=== PATIENT | female | born 1970 | race African-American/Black ===

== ENCOUNTER 2024-05-24 21:46 | Emergency (ER) | payer OTHER ==
--- OUTSIDE RECORDS SUMMARY | 2024-05-24 21:50 | XMS REPORT | Continuity of Care Document ---
Author Name Unknown Address [address] [facility] Luis Enrique. [address] [place] [address] [facility] thconnect Address [address] [facility] Luis Enrique. [address] [place] [address] Care Team Providers Care Iron Piler Name Role Phone Abdulkadir Barker Primary Care Physician Medications Ordered Medication Name Filled Medication Name Start Date Stop Date Current Medication? Ordering Clinician Indication Dosage Frequency Signature (SIG) Comments Components Source diclofenac 1 % topical gel 2023-05 00:00: 00 Yes 4% Gigi Campos naproxen 250 mg tablet 2023-05 00:00: 00 Yes 1mg Gigi Campos atorvastati n 20 mg tablet 2023-05 00:00: 00 Yes mg Gigi Campos losartan 100 mg tablet 2023-05 00:00: 00 Yes mg Gigi Campos Procardia XL 30 mg tablet,exte nded release 2023-05 00:00: 00 Yes 1mg Gigi Campos metformin ER 1,000 mg 24 hr tablet,exte nded release (gastric reten.) 2023-05 00:00: 00 Yes 1mg Gigi Campos metformin ER 1,000 mg 24 hr tablet,exte nded release (gastric reten.) 01-10 00:00: 00 Yes 1mg Gigi Campos atorvastati n 20 mg tablet 01-09 00:00: 00 Yes mg Gigi Dick Andres losartan 100 mg tablet 01-09 00:00: 00 Yes mg Gigi Campos Procardia XL 30 mg tablet,exte nded release 01-09 00:00: 00 Yes 1mg Gigi Campos atorvastati n 20 mg tablet 09-12 00:00: 00 Yes mg Gigi Campos losartan 100 mg tablet 09-12 00:00: 00 Yes mg Gigi Campos metformin ER 500 mg tablet,exte nded release 24 hr 09-12 00:00: 00 Yes mg Gigi Campos Procardia XL 30 mg tablet,exte nded release 09-12 00:00: 00 Yes 1mg Gigi Campos losartan 100 mg tablet - 00:00: 00 Yes mg Gigi Campos atorvastati n 20 mg tablet 06-17 00:00: 00 Yes mg Gigi Campos metformin ER 500 mg tablet,exte nded release 24 hr 06-17 00:00: 00 Yes mg Gigi Campos METFORMIN ER 500MG GP 2022-05 2- 00:00: 00 Yes Gigi Campos TAKE 1 TABLET BY MOUTH TWICE A DAY 2022-05 2- 00:00: 00 09-17 00:00 :00 No 500 Gigi Campos LOSARTAN 50MG 2022-05 2-09 00:00: 00 Yes [id number] Gigi Campos TAKE 1 TABLET DAILY. 2022-05 0- 00:00: 00 09-17 00:00 :00 No 50 Gigi Campos TAKE 1 TABLET BY MOUTH TWICE A DAY 02-09 00:00: 00 09-17 00:00 :00 No 500 Gigi Campos TAKE 1 TABLET DAILY. 02-09 00:00: 00 09-17 00:00 :00 No 25 Gigi Campos INHALE 1 TO 2 PUFFS BY MOUTH EVERY 6 HOURS NEEDED FOR WHEEZE OR FOR BREATHING DIFFICULTY - 00:00: 00 Yes Gigi Campos TAKE 1 TABLET BY MOUTH EVERY 12 HOURS FOR 7 DAYS - 00:00: 00 Yes Gigi Campos TAKE 1 TABLET BY MOUTH EVERY DAY FOR 5 DAYS - 00:00: 00 Yes Gigi Campos ibuprofen 800 mg tablet 6 00:00: 00 Yes 1mg Gigi Campos loratadine 10 mg tablet 2018-05 00:00: 00 Yes 1mg Gigi Campos prednisone 20 mg tablet 08-21 00:00: 00 Yes 1mg Gigi Campos azithromyci n 250 mg tablet 08-21 00:00: 00 Yes mg Gigi Campos benzonatate 100 mg capsule 08-21 00:00: 00 Yes 12mg Gigi Campos amlodipine 2.5 mg tablet 2017-05 00:00: 00 Yes 1mg Gigi Campos amlodipine 2.5 mg tablet 02-04 00:00: 00 Yes 1mg Gigi Campos Norvasc 2.5 mg tablet 10-25 00:00: 00 Yes 1mg Gigi Campos Norvasc 2.5 mg tablet 07-18 00:00: 00 Yes 1mg Gigi Campos amoxicillin 500 mg tablet 07-18 00:00: 00 Yes 1mg Gigi Campos Immunizations Ordered Immunization Name Filled Immunization Name Date Status Comments Source Tdap Tdap 2018-02-04 00:00:00 Completed Gigi Campos Tdap Tdap 2018-02-04 00:00:00 Completed Gigi Campos Vital Signs Vital Name Observation Time Observation Value Comments S ted BP Systolic 2024-05-03 14:03:00 128 mm[Hg] Jameson Campos BP Diastolic 2024-05-03 14:03:00 85 mm[Hg] Luis Enrique phen Dick Campos Weight Measured 2024-05-03 14:03:00 271.20 pounds Gigi Campos Height Measured 2024-05-03 14:03:00 69.00 inches Gigi Campos Body Temperature 2024-05-03 14:03:00 98.20 degrees Gigi Campos Heart Rate 2024-05-03 14:03:00 73.00 /min Lelo Campos Respiratory Rate 2024-05-03 14:03:00 17.00 /min Gigi Campos BP Systolic 2024-04-08 09:49:00 122 mm[Hg] Jameson Campos BP Diastolic 2024-04-08 09:49:00 80 mm[Hg] Luis Enrique phen Dick Campos Weight Measured 2024-04-08 09:49:00 274.40 pounds Gigi F Andres Height Measured 2024-04-08 09:49:00 69.00 inches Gigi F Andres Body Temperature 2024-04-08 09:49:00 97.30 degrees Gigi F Andres Heart Rate 2024-04-08 09:49:00 64.00 /min Lelo en F Andres Respiratory Rate 2024-04-08 09:49:00 18.00 /min Gigi F Andres BP Systolic 2024-01-10 10:58:00 125 mm[Hg] Step hen F Andres BP Diastolic 2024-01-10 10:58:00 81 mm[Hg] Luis Enrique phen F Andres Weight Measured 2024-01-10 10:58:00 269.30 pounds Gigi F Andres Height Measured 2024-01-10 10:58:00 69.00 inches Gigi F Andres Body Temperature 2024-01-10 10:58:00 97.90 degrees Gigi F Andres Heart Rate 2024-01-10 10:58:00 59.00 /min Lelo en F Andres Respiratory Rate 2024-01-10 10:58:00 18.00 /min Gigi F Andres BP Systolic 2023-10-23 11:03:00 148 mm[Hg] Step hen F Andres BP Diastolic 2023-10-23 11:03:00 86 mm[Hg] Luis Enrique phen F Andres Weight Measured 2023-10-23 11:03:00 278.40 pounds Gigi F Andres Height Measured 2023-10-23 11:03:00 69.00 inches Gigi F Andres Body Temperature 2023-10-23 11:03:00 98.00 degrees Gigi F Andres Heart Rate 2023-10-23 11:03:00 60.00 /min Lelo en F Andres Respiratory Rate 2023-10-23 11:03:00 Gigi F Andres BP Systolic 2023-10-23 10:46:00 148 mm[Hg] Step hen F Andres BP Diastolic 2023-10-23 10:46:00 86 mm[Hg] Luis Enrique phen F Andres Weight Measured 2023-10-23 10:46:00 278.40 pounds Gigi F Andres Height Measured 2023-10-23 10:46:00 69.00 inches Gigi F Andres Body Temperature 2023-10-23 10:46:00 98.00 degrees Gigi F Andres Heart Rate 2023-10-23 10:46:00 60.00 /min Lelo en F Andres Respiratory Rate 2023-10-23 10:46:00 Gigi F Andres Weight Measured 2023-09-13 09:10:00 280.40 pounds Gigi F Andres Height Measured 2023-09-13 09:10:00 69.00 inches Gigi F Andres Body Temperature 2023-09-13 09:10:00 98.20 degrees Gigi F Andres Heart Rate 2023-09-13 09:10:00 59.00 /min Lelo en F Andres Respiratory Rate 2023-09-13 09:10:00 16.00 /min Gigi F Andres BP Systolic 2023-09-13 09:10:00 148 mm[Hg] Step hen F Andres BP Diastolic 2023-09-13 09:10:00 82 mm[Hg] Luis Enrique phen F Andres BP Systolic 2023-09-13 08:54:00 148 mm[Hg] Step hen F Andres BP Diastolic 2023-09-13 08:54:00 82 mm[Hg] Luis Enrique phen F Andres Weight Measured 2023-09-13 08:54:00 280.40 pounds Gigi F Andres Height Measured 2023-09-13 08:54:00 69.00 inches Gigi F Andres Body Temperature 2023-09-13 08:54:00 98.20 degrees Gigi F Andres Heart Rate 2023-09-13 08:54:00 59.00 /min Lelo en F Andres Respiratory Rate 2023-09-13 08:54:00 16.00 /min Gigi F Andres BP Systolic 2023-06-15 09:43:00 159 mm[Hg] Step hen F Andres BP Diastolic 2023-06-15 09:43:00 104 mm[Hg] Luis Enrique phen F Andres Weight Measured 2023-06-15 09:43:00 283.60 pounds Gigi F Andres Height Measured 2023-06-15 09:43:00 69.00 inches Gigi F Andres Body Temperature 2023-06-15 09:43:00 98.20 degrees Gigi F Andres Heart Rate 2023-06-15 09:43:00 62.00 /min Lelo en F Andres Respiratory Rate 2023-06-15 09:43:00 16.00 /min Gigi F Andres BP Systolic 2023-03-06 14:55:00 Step hen F Andres BP Diastolic 2023-03-06 14:55:00 Luis Enrique phen F Andres Weight Measured 2023-03-06 14:55:00 Gigi F Andres Height Measured 2023-03-06 14:55:00 Gigi F Andres Body Temperature 2023-03-06 14:55:00 Gigi F Andres Heart Rate 2023-03-06 14:55:00 Lelo en F Nadres Respiratory Rate 2023-03-06 14:55:00 Gigi F Andres BP Systolic 2023-03-06 14:29:00 155 mm[Hg] Step hen F Andres BP Diastolic 2023-03-06 14:29:00 93 mm[Hg] Luis Enrique phen F Andres Weight Measured 2023-03-06 14:29:00 289.00 pounds Gigi F Andres Height Measured 2023-03-06 14:29:00 69.00 inches Gigi F Andres Body Temperature 2023-03-06 14:29:00 98.20 degrees Gigi F Andres Heart Rate 2023-03-06 14:29:00 87.00 /min Lelo en F Andres Respiratory Rate 2023-03-06 14:29:00 18.00 /min Gigi F Andres BP Systolic 2023-02-23 12:45:00 147 mm[Hg] Step hen F Andres BP Diastolic 2023-02-23 12:45:00 91 mm[Hg] Luis Enrique phen F Andres Weight Measured 2023-02-23 12:45:00 290.20 pounds Gigi F Andres Height Measured 2023-02-23 12:45:00 69.00 inches Gigi F Andres Body Temperature 2023-02-23 12:45:00 98.20 degrees Gigi F Andres Heart Rate 2023-02-23 12:45:00 67.00 /min Lelo en F Andres Respiratory Rate 2023-02-23 12:45:00 18.00 /min Gigi F Andres BP Systolic 2023-02-09 16:04:00 171 mm[Hg] Step hen F Andres BP Diastolic 2023-02-09 16:04:00 77 mm[Hg] Luis Enrique phen F Andres Weight Measured 2023-02-09 16:04:00 292.40 pounds Gigi F Andres Height Measured 2023-02-09 16:04:00 69.00 inches Gigi F Andres Body Temperature 2023-02-09 16:04:00 98.40 degrees Gigi F Andres Heart Rate 2023-02-09 16:04:00 81.00 /min Lelo en F Andres Respiratory Rate 2023-02-09 16:04:00 18.00 /min Gigi F Andres BP Systolic 2023-02-02 12:26:00 168 mm[Hg] Step hen F Andres BP Diastolic 2023-02-02 12:26:00 111 mm[Hg] Luis Enrique phen F Andres Weight Measured 2023-02-02 12:26:00 296.40 pounds Gigi F Andres Height Measured 2023-02-02 12:26:00 69.00 inches Gigi F Andres Body Temperature 2023-02-02 12:26:00 98.30 degrees Gigi F Andres Heart Rate 2023-02-02 12:26:00 63.00 /min Lelo en F Andres Respiratory Rate 2023-02-02 12:26:00 16.00 /min Gigi F Andres BP Systolic 2023-02-02 12:00:00 168 mm[Hg] Step hen F Andres BP Diastolic 2023-02-02 12:00:00 111 mm[Hg] Luis Enrique phen F Andres Weight Measured 2023-02-02 12:00:00 296.40 pounds Gigi F Andres Height Measured 2023-02-02 12:00:00 69.00 inches Gigi F Andres Body Temperature 2023-02-02 12:00:00 98.30 degrees Gigi F Andres Heart Rate 2023-02-02 12:00:00 63.00 /min Lelo en F Andres Respiratory Rate 2023-02-02 12:00:00 16.00 /min Gigi F Andres BP Systolic 2021-05-11 16:10:00 Step hen F Andres BP Diastolic 2021-05-11 16:10:00 Luis Enrique phen F Andres Weight Measured 2021-05-11 16:10:00 298.00 pounds Gigi F Andres Height Measured 2021-05-11 16:10:00 69.00 inches Gigi F Andres Body Temperature 2021-05-11 16:10:00 Gigi F Andres Heart Rate 2021-05-11 16:10:00 Lelo Campos Respiratory Rate 2021-05-11 16:10:00 Ggii Campos Procedures Procedure Date / Time Performed Performing Clinicia n Source 95825 Ekg W/ At Least 12 Leads W/ I r 2023-10-23 00:00:00 Gigi Campos Encounters Start Date/Time End Date/Time Encounter Type Admission Type Attending [facility] Care Department Encounter ID Source 2024-05-03 13:56:40 2024-05-03 13:56:40 Outpatient SFA SFA [id number] Gigi Campos 2024-05-03 00:00:00 2024-05-03 00:00:00 Outpatient Visit SFA [id number] Gigi Campos 2024-04-08 09:29:54 2024-04-08 09:29:54 Outpatient SFA SFA [id number] Gigi Campos 2024-04-08 00:00:00 2024-04-08 00:00:00 Outpatient Visit SFA [id number] Gigi Campos 2024-01-10 10:56:12 2024-01-10 10:56:12 Outpatient SFA SFA [id number] Gigi Campos 2024-01-10 00:00:00 2024-01-10 00:00:00 Outpatient Visit SFA [id number] Gigi Campos 2023-10-23 10:42:21 2023-10-23 10:42:21 Outpatient SFA SFA [id number] Gigi Campos 2023-10-23 00:00:00 2023-10-23 00:00:00 Outpatient Visit SFA [id number] Gigi Campos 2023-09-13 08:44:05 2023-09-13 08:44:05 Outpatient SFA SFA [id number] Gigi Campos 2023-09-13 00:00:00 2023-09-13 00:00:00 Outpatient Visit SFA [id number] Gigi Campos 2023-06-15 09:31:33 2023-06-15 09:31:33 Outpatient SFA SFA [id number] Gigi Campos 2023-03-06 14:22:42 2023-03-06 14:22:42 Outpatient SFA SFA [id number] Gigi Campos 2023-02-23 10:35:46 2023-02-23 10:35:46 Outpatient SFA SFA [id number] Gigi Campos 2023-02-09 15:55:32 2023-02-09 15:55:32 Outpatient SFA SFA [id number] Gigi Campos 2023-02-02 11:44:37 2023-02-02 11:44:37 Outpatient SFA SFA [id number] Gigi Campos Results Test Description Test Time Test Comments Results Result Co mments Source LIPID [id number] 03:03:49* Test Item Value Reference Range Interpretation Comme nts CHOLESTEROL (test code = 2210) 143 MG/DL <200 TRIGLYCERIDES (test code = 2232) 79 MG/DL <150 HDL CHOLESTEROL (test code = 2220) 53 MG/DL >39 CALC LDL CHOL (test code = 2237) 74 MG/DL <100 NOTE: CALCULATED LDL IS BASED ON ZEUS-KAYE METHOD WHICHINCLUDES ADJUSTABLE TRIGLYCERIDE:VLDL CHOLESTEROL RATIO.THIS FACTOR VARIES BY MEASURED TRIGLYCERIDE AND NON-HDLCHOLESTEROL CONCENTRATIONS WITH INCREASED CALCULATED LDL SEENIN HIGHER TRIGLYCERIDE OR LOWER NON-HDL SPECIMENS. FOR MOREINFORMATION, SEE CLIENT ANNOUNCEMENT AT [email or web address] RISK RATIO LDL/HDL (test code = 2238) 1.40 RATIO <3.22 COMPREHENSIVE METABOLIC [id number] 03:03:49* Test Item Value Reference Range Interpretation Comme nts GLUCOSE (test code = 2217) 163 MG/DL 70-99 H BUN (test code = 2208) 11 MG/DL 6-20 CREATININE (test code = 2214) 0.79 MG/DL 0.60-1.30 eGFR (2020 CKD-EPI) (test co de = 77774) 91 ML/MIN/1.73 >60 CALC BUN/CREAT (test code = 2234) 14 RATIO 6-28 SODIUM (test code = 2230) 137 MEQ/L 133-146 POTASSIUM (test code = 8) 4.2 MEQ/L 3.5-5.4 CHLORIDE (test code = 2214) 98 MEQ/L 95-107 CARBON DIOXIDE (test code = 6) 26 MEQ/L 19-31 CALCIUM (test code = 2208) 10.0 MG/DL 8.5-10.5 PROTEIN, TOTAL (test code = 2228) 7.2 G/DL 6.1-8.3 ALBUMIN (test code = 2200) 4.4 G/DL 3.5-5.2 CALC GLOBULIN (test code = 2239) 2.8 G/DL 1.9-3.7 CALC A/G RATIO (test code = 2233) 1.6 RATIO 1.0-2.6 BILIRUBIN, TOTAL (test code = 2206) 0.9 MG/DL <=1.2 ALKALINE PHOSPHATASE (test code = 2203) 113 U/L 40-130 AST (test code = 2217) 12 U/L 9-40 ALT (test code = 9) 8 U/L 5-40 HEMOGLOBIN [id number] 02:43:16* Test Item Value Reference Range Interpretation Comme nts HEMOGLOBIN A1c (test code = 26122) 7.4 % 4.2-5.6 H [employer] GUIDELINES FOR HGB A1C: PREDIABETES/INCREASED RISK . . . . . . . 5.7-6.4% DIAGNOSIS OF DIABETES . . . . . . . . . >=6.5% WITH CONFIRMATION OR APPROPRIATE SYMPTOMS NOTE: ASSAY MAY BE AFFECTED BY HEMOGLOBINOPATHIES (SICKLE CELL ANEMIA, S-C DISEASE, OTHERS) OR ARTIFICIALLY LOWERED BY DECREASED RED CELL SURVIVAL (HEMOLYTIC ANEMIAS, BLOOD LOSS, ETC.). CONSIDER ALTERNATE TESTING OR LABORATORY CONSULTATION. LIPID [id number] 00:00:00* Test Item Value Reference Range Interpretation Comme nts CHOLESTEROL (test code = 2209) 143 MG/DL TRIGLYCERIDES (test code = 2231) 79 MG/DL HDL CHOLESTEROL (test code = 2220) 53 MG/DL CALC LDL CHOL (test code = 2237) 74 MG/DL RISK RATIO LDL/HDL (test cod e = 2238) 1.40 RATIO Gigi CamposCOMPREHENSIVE METABOLIC [id number] 00:00:00* Test Item Value Reference Range Interpretation Comme nts GLUCOSE (test code = 2217) 163 MG/DL BUN (test code = 2208) 11 MG/DL CREATININE (test code = 2214) 0.79 MG/DL eGFR (2020 CKD-EPI) (test co de = 28108) 91 ML/MIN/1.73 CALC BUN/CREAT (test code = 2235) 14 RATIO SODIUM (test code = 223) 137 MEQ/L POTASSIUM (test code = 2228) 4.2 MEQ/L CHLORIDE (test code = 2215) 98 MEQ/L CARBON DIOXIDE (test code = 2206) 26 MEQ/L CALCIUM (test code = 2209) 10.0 MG/DL PROTEIN, TOTAL (test code = 2229) 7.2 G/DL ALBUMIN (test code = 2201) 4.4 G/DL CALC GLOBULIN (test code = 2240) 2.8 G/DL CALC A/G RATIO (test code = 2234) 1.6 RATIO BILIRUBIN, TOTAL (test code = 2207) 0.9 MG/DL ALKALINE PHOSPHATASE (test code = 2204) 113 U/L AST (test code = 2218) 12 U/L ALT (test code = 2219) 8 U/L Gigi CamposALBUMIN/CREATININE RATIO, RANDOM [id number] 00:00:00* Test Item Value Reference Range Interpretation Comme nts CREATININE, URINE, CONC. (te st code = 2072) 177.0 MG/DL ALBUMIN, URINE, RANDOM (test code = 05291) 1.0 MG/DL CALC ALBUMIN/CREAT, RND (connor t code = 45407) 6 MG/G Gigi CamposHEMOGLOBIN [id number] 00:00:00* Test Item Value Reference Range Interpretation Comme nts HEMOGLOBIN A1c (test code = 06163) 7.4 % Gigi CamposLIPID [id number] 00:00:00* Test Item Value Reference Range Interpretation Comme nts CHOLESTEROL (test code = 2210) 136 MG/DL TRIGLYCERIDES (test code = 2232) 111 MG/DL HDL CHOLESTEROL (test code = 2220) 48 MG/DL CALC LDL CHOL (test code = 2237) 69 MG/DL RISK RATIO LDL/HDL (test cod e = 2238) 1.44 RATIO Gigi CamposCOMPREHENSIVE METABOLIC [id number] 00:00:00* Test Item Value Reference Range Interpretation Comme nts GLUCOSE (test code = 2217) 157 MG/DL BUN (test code = 2208) 9 MG/DL CREATININE (test code = 2214) 0.83 MG/DL eGFR (2020 CKD-EPI) (test co de = 59031) 85 ML/MIN/1.73 CALC BUN/CREAT (test code = 2235) 11 RATIO SODIUM (test code = 2231) 141 MEQ/L POTASSIUM (test code = 2228) 4.5 MEQ/L CHLORIDE (test code = 2215) 102 MEQ/L CARBON DIOXIDE (test code = 2206) 24 MEQ/L CALCIUM (test code = 2209) 10.0 MG/DL PROTEIN, TOTAL (test code = 2229) 7.7 G/DL ALBUMIN (test code = 2201) 4.5 G/DL CALC GLOBULIN (test code = 2240) 3.2 G/DL CALC A/G RATIO (test code = 2234) 1.4 RATIO BILIRUBIN, TOTAL (test code = 2207) 0.8 MG/DL ALKALINE PHOSPHATASE (test code = 2204) 114 U/L AST (test code = 2218) 22 U/L ALT (test code = 2219) 17 U/L Gigi CamposHEMOGLOBIN [id number] 00:00:00* Test Item Value Reference Range Interpretation Comme nts HEMOGLOBIN A1c (test code = 04734) 7.5 % Gigi CamposLIPID [id number] 00:00:00* Test Item Value Reference Range Interpretation Comme nts CHOLESTEROL (test code = 2210) 136 MG/DL TRIGLYCERIDES (test code = 2232) 111 MG/DL HDL CHOLESTEROL (test code = 2220) 48 MG/DL CALC LDL CHOL (test code = 2237) 69 MG/DL RISK RATIO LDL/HDL (test cod e = 2238) 1.44 RATIO Gigi CamposCOMPREHENSIVE METABOLIC [id number] 00:00:00* Test Item Value Reference Range Interpretation Comme nts GLUCOSE (test code = 2217) 157 MG/DL BUN (test code = 2208) 9 MG/DL CREATININE (test code = 2214) 0.83 MG/DL eGFR (2020 CKD-EPI) (test co de = 13543) 85 ML/MIN/1.73 CALC BUN/CREAT (test code = 2235) 11 RATIO SODIUM (test code = 223) 141 MEQ/L POTASSIUM (test code = 2228) 4.5 MEQ/L CHLORIDE (test code = 2215) 102 MEQ/L CARBON DIOXIDE (test code = 2206) 24 MEQ/L CALCIUM (test code = 2209) 10.0 MG/DL PROTEIN, TOTAL (test code = 2228) 7.7 G/DL ALBUMIN (test code = 220) 4.5 G/DL CALC GLOBULIN (test code = 2240) 3.2 G/DL CALC A/G RATIO (test code = 2234) 1.4 RATIO BILIRUBIN, TOTAL (test code = 2206) 0.8 MG/DL ALKALINE PHOSPHATASE (test code = 2203) 114 U/L AST (test code = 2218) 22 U/L ALT (test code = 2219) 17 U/L Gigi CamposHEMOGLOBIN [id number] 00:00:00* Test Item Value Reference Range Interpretation Comme [facility] HEMOGLOBIN A1c (test code = 29704) 7.5 % Gigi CamposLIPID [id number] 04:18:55* Test Item Value Reference Range Interpretation Comme nts CHOLESTEROL (test code = 2210) 142 MG/DL <200 TRIGLYCERIDES (test code = 2232) 89 MG/DL <150 HDL CHOLESTEROL (test code = 2220) 48 MG/DL >39 CALC LDL CHOL (test code = 2237) 77 MG/DL <100 NOTE: CALCULATED LDL IS BASED ON ZEUS-KAYE METHOD WHICHINCLUDES ADJUSTABLE TRIGLYCERIDE:VLDL CHOLESTEROL RATIO.THIS FACTOR VARIES BY MEASURED TRIGLYCERIDE AND NON-HDLCHOLESTEROL CONCENTRATIONS WITH INCREASED CALCULATED LDL SEENIN HIGHER TRIGLYCERIDE OR LOWER NON-HDL SPECIMENS. FOR MOREINFORMATION, SEE CLIENT ANNOUNCEMENT AT [email or web address] RISK RATIO LDL/HDL (test code = 2238) 1.60 RATIO <3.22 COMPREHENSIVE METABOLIC [id number] 04:18:55* Test Item Value Reference Range Interpretation Comme nts GLUCOSE (test code = 2216) 166 MG/DL 70-99 H BUN (test code = 2207) 12 MG/DL 6-20 CREATININE (test code = 2213) 0.82 MG/DL 0.60-1.30 eGFR (2020 CKD-EPI) (test code = 72217) 87 ML/MIN/1.73 >60 CALC BUN/CREAT (test code = 2234) 15 RATIO 6-28 SODIUM (test code = 2230) 140 MEQ/L 133-146 POTASSIUM (test code = 2227) 4.3 MEQ/L 3.5-5.4 CHLORIDE (test code = 2214) 102 MEQ/L 95-107 CARBON DIOXIDE (test code = 2205) 28 MEQ/L 19-31 CALCIUM (test code = 2208) 9.7 MG/DL 8.5-10.5 PROTEIN, TOTAL (test code = 2228) 7.1 G/DL 6.1-8.3 ALBUMIN (test code = 2200) 4.3 G/DL 3.5-5.2 CALC GLOBULIN (test code = 0) 2.8 G/DL 1.9-3.7 CALC A/G RATIO (test code = 2233) 1.5 RATIO 1.0-2.6 BILIRUBIN, TOTAL (test code = 2206) 0.8 MG/DL <=1.2 ALKALINE PHOSPHATASE (test code = 2203) 107 U/L 40-130 AST (test code = 2217) 18 U/L 9-40 ALT (test code = 2218) 16 U/L 5-40 UNLESS OTHERWISE INDICATED, ALL TESTING PERFORMED AT [facility] [address] [place] [address] ENVIRONMENTAL STUDIES DEPARTMENT CHAIR: MEGHANN CURRY M.D. [place] NUMBER [id number] [facility] [place]. [id number] HEMOGLOBIN [id number] 02:28:16* Test Item Value Reference Range Interpretation Comme nts HEMOGLOBIN A1c (test code = 86796) 8.2 % 4.2-5.6 H [employer] GUIDELINES FOR HGB A1C: PREDIABETES/INCREASED RISK . . . . . . . 5.7-6.4% DIAGNOSIS OF DIABETES . . . . . . . . . >=6.5% WITH CONFIRMATION OR APPROPRIATE SYMPTOMS NOTE: ASSAY MAY BE AFFECTED BY HEMOGLOBINOPATHIES (SICKLE CELL ANEMIA, S-C DISEASE, OTHERS) OR ARTIFICIALLY LOWERED BY DECREASED RED CELL SURVIVAL (HEMOLYTIC ANEMIAS, BLOOD LOSS, ETC.). CONSIDER ALTERNATE TESTING OR LABORATORY CONSULTATION. LIPID [id number] 00:00:00* Test Item Value Reference Range Interpretation Comme nts CHOLESTEROL (test code = 2210) 142 MG/DL TRIGLYCERIDES (test code = 2232) 89 MG/DL HDL CHOLESTEROL (test code = 2220) 48 MG/DL CALC LDL CHOL (test code = 2237) 77 MG/DL RISK RATIO LDL/HDL (test cod e = 2238) 1.60 RATIO Gigi CamposCOMPREHENSIVE METABOLIC [id number] 00:00:00* Test Item Value Reference Range Interpretation Comme nts GLUCOSE (test code = 2217) 166 MG/DL BUN (test code = 2208) 12 MG/DL CREATININE (test code = 2214) 0.82 MG/DL eGFR (2020 CKD-EPI) (test co de = 49360) 87 ML/MIN/1.73 CALC BUN/CREAT (test code = 2235) 15 RATIO SODIUM (test code = 2231) 140 MEQ/L POTASSIUM (test code = 2228) 4.3 MEQ/L CHLORIDE (test code = 2215) 102 MEQ/L CARBON DIOXIDE (test code = 2206) 28 MEQ/L CALCIUM (test code = 2209) 9.7 MG/DL PROTEIN, TOTAL (test code = 2229) 7.1 G/DL ALBUMIN (test code = 2201) 4.3 G/DL CALC GLOBULIN (test code = 2240) 2.8 G/DL CALC A/G RATIO (test code = 2234) 1.5 RATIO BILIRUBIN, TOTAL (test code = 2207) 0.8 MG/DL ALKALINE PHOSPHATASE (test code = 2204) 107 U/L AST (test code = 2218) 18 U/L ALT (test code = 2219) 16 U/L Gigi CamposHEMOGLOBIN [id number] 00:00:00* Test Item Value Reference Range Interpretation Comme nts HEMOGLOBIN A1c (test code = 46528) 8.2 % Gigi CamposLIPID [id number] 00:00:00* Test Item Value Reference Range Interpretation Comme nts CHOLESTEROL (test code = 2210) 142 MG/DL TRIGLYCERIDES (test code = 2232) 89 MG/DL HDL CHOLESTEROL (test code = 2220) 48 MG/DL CALC LDL CHOL (test code = 2237) 77 MG/DL RISK RATIO LDL/HDL (test cod e = 2238) 1.60 RATIO Gigi CamposCOMPREHENSIVE METABOLIC [id number] 00:00:00* Test Item Value Reference Range Interpretation Comme nts GLUCOSE (test code = 2217) 166 MG/DL BUN (test code = 2208) 12 MG/DL CREATININE (test code = 2214) 0.82 MG/DL eGFR (2020 CKD-EPI) (test co de = 74636) 87 ML/MIN/1.73 CALC BUN/CREAT (test code = 2235) 15 RATIO SODIUM (test code = 2231) 140 MEQ/L POTASSIUM (test code = 2228) 4.3 MEQ/L CHLORIDE (test code = 2215) 102 MEQ/L CARBON DIOXIDE (test code = 2206) 28 MEQ/L CALCIUM (test code = 2209) 9.7 MG/DL PROTEIN, TOTAL (test code = 2229) 7.1 G/DL ALBUMIN (test code = 2201) 4.3 G/DL CALC GLOBULIN (test code = 2240) 2.8 G/DL CALC A/G RATIO (test code = 2234) 1.5 RATIO BILIRUBIN, TOTAL (test code = 2207) 0.8 MG/DL ALKALINE PHOSPHATASE (test code = 2204) 107 U/L AST (test code = 2218) 18 U/L ALT (test code = 2219) 16 U/L Gigi CamposHEMOGLOBIN [id number] 00:00:00* Test Item Value Reference Range Interpretation Comme nts HEMOGLOBIN A1c (test code = 99389) 8.2 % Gigi CamposLIPID [id number] 00:00:00* Test Item Value Reference Range Interpretation Comme nts CHOLESTEROL (test code = 2210) 142 MG/DL TRIGLYCERIDES (test code = 2232) 89 MG/DL HDL CHOLESTEROL (test code = 2220) 48 MG/DL CALC LDL CHOL (test code = 2237) 77 MG/DL RISK RATIO LDL/HDL (test cod e = 2238) 1.60 RATIO Gigi CamposCOMPREHENSIVE METABOLIC [id number] 00:00:00* Test Item Value Reference Range Interpretation Comme nts GLUCOSE (test code = 2217) 166 MG/DL BUN (test code = 2208) 12 MG/DL CREATININE (test code = 2214) 0.82 MG/DL eGFR (2020 CKD-EPI) (test co de = 95187) 87 ML/MIN/1.73 CALC BUN/CREAT (test code = 2235) 15 RATIO SODIUM (test code = 2231) 140 MEQ/L POTASSIUM (test code = 2228) 4.3 MEQ/L CHLORIDE (test code = 2215) 102 MEQ/L CARBON DIOXIDE (test code = 2206) 28 MEQ/L CALCIUM (test code = 2209) 9.7 MG/DL PROTEIN, TOTAL (test code = 2229) 7.1 G/DL ALBUMIN (test code = 2201) 4.3 G/DL CALC GLOBULIN (test code = 2240) 2.8 G/DL CALC A/G RATIO (test code = 2234) 1.5 RATIO BILIRUBIN, TOTAL (test code = 2207) 0.8 MG/DL ALKALINE PHOSPHATASE (test code = 2204) 107 U/L AST (test code = 2218) 18 U/L ALT (test code = 2219) 16 U/L Gigi CamposHEMOGLOBIN [id number] 00:00:00* Test Item Value Reference Range Interpretation Comme nts HEMOGLOBIN A1c (test code = 67571) 8.2 % Gigi CamposLIPID [id number] 00:00:00* Test Item Value Reference Range Interpretation Comme nts CHOLESTEROL (test code = 2210) 142 MG/DL TRIGLYCERIDES (test code = 2232) 89 MG/DL HDL CHOLESTEROL (test code = 2220) 48 MG/DL CALC LDL CHOL (test code = 2237) 77 MG/DL RISK RATIO LDL/HDL (test cod e = 2238) 1.60 RATIO Gigi CamposCOMPREHENSIVE METABOLIC [id number] 00:00:00* Test Item Value Reference Range Interpretation Comme nts GLUCOSE (test code = 2217) 166 MG/DL BUN (test code = 2208) 12 MG/DL CREATININE (test code = 2214) 0.82 MG/DL eGFR (2020 CKD-EPI) (test co de = 05286) 87 ML/MIN/1.73 CALC BUN/CREAT (test code = 2235) 15 RATIO SODIUM (test code = 2231) 140 MEQ/L POTASSIUM (test code = 2228) 4.3 MEQ/L CHLORIDE (test code = 2215) 102 MEQ/L CARBON DIOXIDE (test code = 2206) 28 MEQ/L CALCIUM (test code = 2209) 9.7 MG/DL PROTEIN, TOTAL (test code = 2229) 7.1 G/DL ALBUMIN (test code = 2201) 4.3 G/DL CALC GLOBULIN (test code = 2240) 2.8 G/DL CALC A/G RATIO (test code = 2234) 1.5 RATIO BILIRUBIN, TOTAL (test code = 2207) 0.8 MG/DL ALKALINE PHOSPHATASE (test code = 220) 107 U/L AST (test code = 2218) 18 U/L ALT (test code = 2219) 16 U/L Gigi CamposHEMOGLOBIN [id number] 00:00:00* Test Item Value Reference Range Interpretation Comme nts HEMOGLOBIN A1c (test code = 86155) 8.2 % Gigi CamposLIPID [id number] 06:21:14* Test Item Value Reference Range Interpretation Comme nts CHOLESTEROL (test code = 2210) 184 MG/DL <200 TRIGLYCERIDES (test code = 2232) 84 MG/DL <150 HDL CHOLESTEROL (test code = 2220) 48 MG/DL >39 CALC LDL CHOL (test code = 2237) 118 MG/DL <100 H NOTE: CALCULATED LDL IS BASED ON ZEUS-KAYE METHOD WHICHINCLUDES ADJUSTABLE TRIGLYCERIDE:VLDL CHOLESTEROL RATIO.THIS FACTOR VARIES BY MEASURED TRIGLYCERIDE AND NON-HDLCHOLESTEROL CONCENTRATIONS WITH INCREASED CALCULATED LDL SEENIN HIGHER TRIGLYCERIDE OR LOWER NON-HDL SPECIMENS. FOR MOREINFORMATION, SEE CLIENT ANNOUNCEMENT AT [email or web address] RISK RATIO LDL/HDL (test code = 2238) 2.46 RATIO <3.22 UNLESS OTHERW ISE INDICATED, ALL TESTING PERFORMED AT [facility] [address] [place] [address] ENVIRONMENTAL STUDIES DEPARTMENT CHAIR: MEGHANN CURRY M.D. CLIA NUMBER [id number] [facility] [place]. [id number] COMPREHENSIVE METABOLIC [id number] 06:21:14* Test Item Value Reference Range Interpretation Comme nts GLUCOSE (test code = 7) 150 MG/DL 70-99 H BUN (test code = 2207) 10 MG/DL 6-20 CREATININE (test code = 2214) 0.75 MG/DL 0.60-1.30 eGFR (2020 CKD-EPI) (test co de = 43654) 97 ML/MIN/1.73 >60 CALC BUN/CREAT (test code = 2235) 13 RATIO 6-28 SODIUM (test code = 223) 139 MEQ/L 133-146 POTASSIUM (test code = 2228) 4.4 MEQ/L 3.5-5.4 CHLORIDE (test code = 2214) 103 MEQ/L 95-107 CARBON DIOXIDE (test code = 6) 25 MEQ/L 19-31 CALCIUM (test code = 2208) 9.5 MG/DL 8.5-10.5 PROTEIN, TOTAL (test code = 2228) 7.0 G/DL 6.1-8.3 ALBUMIN (test code = 2200) 4.2 G/DL 3.5-5.2 CALC GLOBULIN (test code = 2240) 2.8 G/DL 1.9-3.7 CALC A/G RATIO (test code = 223) 1.5 RATIO 1.0-2.6 BILIRUBIN, TOTAL (test code = 2206) 0.7 MG/DL <=1.2 ALKALINE PHOSPHATASE (test code = 4) 100 U/L 40-128 AST (test code = 2218) 21 U/L 9-40 ALT (test code = 2219) 18 U/L 5-40 HEMOGLOBIN [id number] 02:43:38* Test Item Value Reference Range Interpretation Comme nts HEMOGLOBIN A1c (test code = 32494) 7.7 % 4.2-5.6 H [employer] GUIDELINES FOR HGB A1C: PREDIABETES/INCREASED RISK . . . . . . . 5.7-6.4% DIAGNOSIS OF DIABETES . . . . . . . . . >=6.5% WITH CONFIRMATION OR APPROPRIATE SYMPTOMS NOTE: ASSAY MAY BE AFFECTED BY HEMOGLOBINOPATHIES (SICKLE CELL ANEMIA, S-C DISEASE, OTHERS) OR ARTIFICIALLY LOWERED BY DECREASED RED CELL SURVIVAL (HEMOLYTIC ANEMIAS, BLOOD LOSS, ETC.). CONSIDER ALTERNATE TESTING OR LABORATORY CONSULTATION. COMPREHENSIVE METABOLIC [id number] 00:00:00* Test Item Value Reference Range Interpretation Comme nts GLUCOSE (test code = 2217) 150 MG/DL BUN (test code = 2208) 10 MG/DL CREATININE (test code = 2214) 0.75 MG/DL eGFR (2020 CKD-EPI) (test co de = 32387) 97 ML/MIN/1.73 CALC BUN/CREAT (test code = 2235) 13 RATIO SODIUM (test code = 2231) 139 MEQ/L POTASSIUM (test code = 2228) 4.4 MEQ/L CHLORIDE (test code = 2215) 103 MEQ/L CARBON DIOXIDE (test code = 2206) 25 MEQ/L CALCIUM (test code = 2209) 9.5 MG/DL PROTEIN, TOTAL (test code = 2229) 7.0 G/DL ALBUMIN (test code = 2201) 4.2 G/DL CALC GLOBULIN (test code = 2240) 2.8 G/DL CALC A/G RATIO (test code = 2234) 1.5 RATIO BILIRUBIN, TOTAL (test code = 2207) 0.7 MG/DL ALKALINE PHOSPHATASE (test code = 2204) 100 U/L AST (test code = 2218) 21 U/L ALT (test code = 2219) 18 U/L Gigi CamposHEMOGLOBIN [id number] 00:00:00* Test Item Value Reference Range Interpretation Comme nts HEMOGLOBIN A1c (test code = 51965) 7.7 % Gigi CamposLIPID [id number] 00:00:00* Test Item Value Reference Range Interpretation Comme nts CHOLESTEROL (test code = 2210) 184 MG/DL TRIGLYCERIDES (test code = 2232) 84 MG/DL HDL CHOLESTEROL (test code = 2220) 48 MG/DL CALC LDL CHOL (test code = 2237) 118 MG/DL RISK RATIO LDL/HDL (test cod e = 2238) 2.46 RATIO Gigi CamposCOMPREHENSIVE METABOLIC [id number] 00:00:00* Test Item Value Reference Range Interpretation Comme nts GLUCOSE (test code = 2217) 150 MG/DL BUN (test code = 2208) 10 MG/DL CREATININE (test code = 2214) 0.75 MG/DL eGFR (2020 CKD-EPI) (test co de = 20640) 97 ML/MIN/1.73 CALC BUN/CREAT (test code = 2235) 13 RATIO SODIUM (test code = 2231) 139 MEQ/L POTASSIUM (test code = 2228) 4.4 MEQ/L CHLORIDE (test code = 2215) 103 MEQ/L CARBON DIOXIDE (test code = 2206) 25 MEQ/L CALCIUM (test code = 2209) 9.5 MG/DL PROTEIN, TOTAL (test code = 2229) 7.0 G/DL ALBUMIN (test code = 2201) 4.2 G/DL CALC GLOBULIN (test code = 2240) 2.8 G/DL CALC A/G RATIO (test code = 2234) 1.5 RATIO BILIRUBIN, TOTAL (test code = 2207) 0.7 MG/DL ALKALINE PHOSPHATASE (test code = 2204) 100 U/L AST (test code = 2218) 21 U/L ALT (test code = 2219) 18 U/L Gigi CamposHEMOGLOBIN [id number] 00:00:00* Test Item Value Reference Range Interpretation Comme [facility] HEMOGLOBIN A1c (test code = 86773) 7.7 % Gigi CamposLIPID [id number] 00:00:00* Test Item Value Reference Range Interpretation Comme nts CHOLESTEROL (test code = 2210) 184 MG/DL TRIGLYCERIDES (test code = 2232) 84 MG/DL HDL CHOLESTEROL (test code = 2220) 48 MG/DL CALC LDL CHOL (test code = 2237) 118 MG/DL RISK RATIO LDL/HDL (test cod e = 2238) 2.46 RATIO Gigi CamposCOMPREHENSIVE METABOLIC [id number] 00:00:00* Test Item Value Reference Range Interpretation Comme nts GLUCOSE (test code = 2217) 150 MG/DL BUN (test code = 2208) 10 MG/DL CREATININE (test code = 2214) 0.75 MG/DL eGFR (2020 CKD-EPI) (test co de = 15428) 97 ML/MIN/1.73 CALC BUN/CREAT (test code = 2235) 13 RATIO SODIUM (test code = 2231) 139 MEQ/L POTASSIUM (test code = 2228) 4.4 MEQ/L CHLORIDE (test code = 2215) 103 MEQ/L CARBON DIOXIDE (test code = 2206) 25 MEQ/L CALCIUM (test code = 2209) 9.5 MG/DL PROTEIN, TOTAL (test code = 2229) 7.0 G/DL ALBUMIN (test code = 2201) 4.2 G/DL CALC GLOBULIN (test code = 2240) 2.8 G/DL CALC A/G RATIO (test code = 2234) 1.5 RATIO BILIRUBIN, TOTAL (test code = 2207) 0.7 MG/DL ALKALINE PHOSPHATASE (test code = 2204) 100 U/L AST (test code = 2218) 21 U/L ALT (test code = 2219) 18 U/L Gigi CamposHEMOGLOBIN [id number] 00:00:00* Test Item Value Reference Range Interpretation Comme nts HEMOGLOBIN A1c (test code = 36863) 7.7 % Gigi CamposLIPID [id number] 00:00:00* Test Item Value Reference Range Interpretation Comme nts CHOLESTEROL (test code = 2210) 184 MG/DL TRIGLYCERIDES (test code = 2232) 84 MG/DL HDL CHOLESTEROL (test code = 2220) 48 MG/DL CALC LDL CHOL (test code = 2237) 118 MG/DL RISK RATIO LDL/HDL (test cod e = 2238) 2.46 RATIO Gigi CamposCOMPREHENSIVE METABOLIC [id number] 00:00:00* Test Item Value Reference Range Interpretation Comme nts GLUCOSE (test code = 2217) 150 MG/DL BUN (test code = 2208) 10 MG/DL CREATININE (test code = 2214) 0.75 MG/DL eGFR (2020 CKD-EPI) (test co de = 04876) 97 ML/MIN/1.73 CALC BUN/CREAT (test code = 2235) 13 RATIO SODIUM (test code = 2231) 139 MEQ/L POTASSIUM (test code = 2228) 4.4 MEQ/L CHLORIDE (test code = 2215) 103 MEQ/L CARBON DIOXIDE (test code = 2206) 25 MEQ/L CALCIUM (test code = 2209) 9.5 MG/DL PROTEIN, TOTAL (test code = 2229) 7.0 G/DL ALBUMIN (test code = 2201) 4.2 G/DL CALC GLOBULIN (test code = 2240) 2.8 G/DL CALC A/G RATIO (test code = 2234) 1.5 RATIO BILIRUBIN, TOTAL (test code = 2207) 0.7 MG/DL ALKALINE PHOSPHATASE (test code = 2204) 100 U/L AST (test code = 2218) 21 U/L ALT (test code = 2219) 18 U/L Gigi CamposHEMOGLOBIN [id number] 00:00:00* Test Item Value Reference Range Interpretation Comme nts HEMOGLOBIN A1c (test code = 97178) 7.7 % Gigi Jennings AustinLIPID [id number] 00:00:00* Test Item Value Reference Range Interpretation Comme nts CHOLESTEROL (test code = 2210) 184 MG/DL TRIGLYCERIDES (test code = 2232) 84 MG/DL HDL CHOLESTEROL (test code = 2220) 48 MG/DL CALC LDL CHOL (test code = 2237) 118 MG/DL RISK RATIO LDL/HDL (test cod e = 2238) 2.46 RATIO Gigi CamposCOMPREHENSIVE METABOLIC [id number] 00:00:00* Test Item Value Reference Range Interpretation Comme nts GLUCOSE (test code = 2217) 150 MG/DL BUN (test code = 2208) 10 MG/DL CREATININE (test code = 2214) 0.75 MG/DL eGFR (2020 CKD-EPI) (test co de = 65014) 97 ML/MIN/1.73 CALC BUN/CREAT (test code = 2235) 13 RATIO SODIUM (test code = 2231) 139 MEQ/L POTASSIUM (test code = 2228) 4.4 MEQ/L CHLORIDE (test code = 2215) 103 MEQ/L CARBON DIOXIDE (test code = 2206) 25 MEQ/L CALCIUM (test code = 2209) 9.5 MG/DL PROTEIN, TOTAL (test code = 2229) 7.0 G/DL ALBUMIN (test code = 2201) 4.2 G/DL CALC GLOBULIN (test code = 2240) 2.8 G/DL CALC A/G RATIO (test code = 2234) 1.5 RATIO BILIRUBIN, TOTAL (test code = 2207) 0.7 MG/DL ALKALINE PHOSPHATASE (test code = 2204) 100 U/L AST (test code = 2218) 21 U/L ALT (test code = 2219) 18 U/L Gigi Jennings AustinHEMOGLOBIN [id number] 00:00:00* Test Item Value Reference Range Interpretation Comme nts HEMOGLOBIN A1c (test code = 51048) 7.7 % Gigi CamposLIPID [id number] 00:00:00* Test Item Value Reference Range Interpretation Comme nts CHOLESTEROL (test code = 2210) 184 MG/DL TRIGLYCERIDES (test code = 2232) 84 MG/DL HDL CHOLESTEROL (test code = 2220) 48 MG/DL CALC LDL CHOL (test code = 2237) 118 MG/DL RISK RATIO LDL/HDL (test cod e = 2238) 2.46 RATIO Gigi CamposPAP TEST, THINPREP, [id number] 18:02:26* Test Item Value Reference Range Interpretation Comme nts SOURCE: (test code = 8001) Cervical/Endoc ervical SLIDES: (test code = 8011) 1 LMP: (test code = 8021) 12/2022 SPECIMEN ADEQUACY: (test code = 69222) (NOTE) Satisfactory for evaluation. Endocervical cells/transformation zone component present. INTERPRETATION: (test code = 64331) NILM/NO EPITH. ABNORMALITY;SE E BELOW ---- NEGATIVE FOR INTRAEPITHELIAL LESION OR MALIGNANCY (NILM) - OTHER COMMENTS: (test code = 8081) (NOTE) Shift in garrett suggestive of bacterial vaginosis. ROLLER DIE CUTTING MACHINE OPERATOR : (test code = 8101) NAKIA Vick( ASCP)[facility] LOCATION: (test code = 57218) (NOTE) Specimens proces sed and interpreted at [facility], [address] [place] [address], , CLIA: [id number] CPT: (test code = 8140) (NOTE) 81339 UNLESS OTH ERWISE INDICATED, COMPUTER AIDED AND ROLLER DIE CUTTING MACHINE OPERATOR SCREENING PERFORMED. The Pap test is a screening test with an inherent, but low probability of error. Your patient should be reminded to consult you immediately if she experiences any suspicious signs or symptoms, regardless of her Pap test result. An alternate report format containing images or consolidated prior Pap history is available as applicable. HPV HIGH RISK WITH GENOTYPE, [id number] 17:53:13* Test Item Value Reference Range Interpretation Comme nts HPV HIGH RISK INTERP (test code = 43552) NEGATIVE NEGATIVE HPV 16 (test code = 90220) NEGATIVE HPV 18 (test code = 53158) NEGATIVE HPV, HR, OTHER GENOTYPES (test code = 38572) NEGATIVE Testing methodol ogy is real-time PCR utilizing hydrolysis probes with the Vaximmas 4800 system. The test individually detects genotypes 16 and 18, as well as the other 12 high risk types (31,33,35,39,45,51,52,56 ,58,59,66,68). The expected result is negative. A negative result does not rule out the presence of HPV not included in the genotype set, a low level of infection or specimen sampling error. UNLESS OTHERWISE INDICATED, ALL TESTING PERFORMED AT [facility] [address] [place] [address] ENVIRONMENTAL STUDIES DEPARTMENT CHAIR: MEGHANN CURRY M.D. IA NUMBER [id number] [facility] [place]. [id number] HPV HIGH RISK WITH GENOTYPE, [id number] 00:00:00* Test Item Value Reference Range Interpretation Comme nts HPV HIGH RISK INTERP (test c ode = 62587) NEGATIVE HPV 16 (test code = 41679) NEGATIVE HPV 18 (test code = 78989) NEGATIVE HPV, HR, OTHER GENOTYPES (te st code = 43177) NEGATIVE PDFE (test code = PDFReport) PDF Gigi Jennings AustinPAP TEST, THINPREP, [id number] 00:00:00* Test Item Value Reference Range Interpretation Comme nts SOURCE: (test code = 8001) Cervical/Endocervical SLIDES: (test code = 8011) 1 LMP: (test code = 8021) 12/2022 SPECIMEN ADEQUACY: (test code = 53138) (NOTE) INTERPRETATION: (test code = 57127) NILM/NO EPITH. ABNORMALITY;SEE BELOW OTHER COMMENTS: (test code = 8081) (NOTE) ROLLER DIE CUTTING MACHINE OPERATOR: (test code = 8101) NAKIA Vick(ASCP)IA C LOCATION: (test code = 67727) (NOTE) CPT: (test code = 8140) (NOTE) Gigi Jennings AustinHPV HIGH RISK WITH GENOTYPE, [id number] 00:00:00* Test Item Value Reference Range Interpretation Comme nts HPV HIGH RISK INTERP (test c ode = 44705) NEGATIVE HPV 16 (test code = 58762) NEGATIVE HPV 18 (test code = 17808) NEGATIVE HPV, HR, OTHER GENOTYPES (te st code = 86253) NEGATIVE PDFE (test code = PDFReport) PDF Gigi CamposPAP TEST, THINPREP, [id number] 00:00:00* Test Item Value Reference Range Interpretation Comme nts SOURCE: (test code = 8001) Cervical/Endocervical SLIDES: (test code = 8011) 1 LMP: (test code = 8021) 12/2022 SPECIMEN ADEQUACY: (test code = 10206) (NOTE) INTERPRETATION: (test code = 71042) NILM/NO EPITH. ABNORMALITY;SEE BELOW OTHER COMMENTS: (test code = 8081) (NOTE) ROLLER DIE CUTTING MACHINE OPERATOR: (test code = 8101) NAKIA Vick(ASCP)IA C LOCATION: (test code = 47262) (NOTE) CPT: (test code = 8140) (NOTE) Gigi CamposHPV HIGH RISK WITH GENOTYPE, [id number] 00:00:00* Test Item Value Reference Range Interpretation Comme nts HPV HIGH RISK INTERP (test c ode = 35442) NEGATIVE HPV 16 (test code = 31745) NEGATIVE HPV 18 (test code = 57009) NEGATIVE HPV, HR, OTHER GENOTYPES (te st code = 32969) NEGATIVE PDFE (test code = PDFReport) PDF Gigi CamposPAP TEST, THINPREP, [id number] 00:00:00* Test Item Value Reference Range Interpretation Comme nts SOURCE: (test code = 8001) Cervical/Endocervical SLIDES: (test code = 8011) 1 LMP: (test code = 8021) 12/2022 SPECIMEN ADEQUACY: (test code = 64758) (NOTE) INTERPRETATION: (test code = 17332) NILM/NO EPITH. ABNORMALITY;SEE BELOW OTHER COMMENTS: (test code = 8081) (NOTE) ROLLER DIE CUTTING MACHINE OPERATOR: (test code = 8101) NAKIA Vick(ASCP)IA C LOCATION: (test code = 96544) (NOTE) CPT: (test code = 8140) (NOTE) Gigi Jennings AustinHPV HIGH RISK WITH GENOTYPE, [id number] 00:00:00* Test Item Value Reference Range Interpretation Comme nts HPV HIGH RISK INTERP (test c ode = 23414) NEGATIVE HPV 16 (test code = 40884) NEGATIVE HPV 18 (test code = 55117) NEGATIVE HPV, HR, OTHER GENOTYPES (te st code = 21760) NEGATIVE PDFE (test code = PDFReport) PDF Gigi CamposPAP TEST, THINPREP, [id number] 00:00:00* Test Item Value Reference Range Interpretation Comme nts SOURCE: (test code = 8001) Cervical/Endocervical SLIDES: (test code = 8011) 1 LMP: (test code = 8021) 12/2022 SPECIMEN ADEQUACY: (test code = 04930) (NOTE) INTERPRETATION: (test code = 28388) NILM/NO EPITH. ABNORMALITY;SEE BELOW OTHER COMMENTS: (test code = 8081) (NOTE) ROLLER DIE CUTTING MACHINE OPERATOR: (test code = 8101) NAKIA Vick(ASCP)IA C LOCATION: (test code = 51541) (NOTE) CPT: (test code = 8140) (NOTE) Gigi Jennings AustinHPV HIGH RISK WITH GENOTYPE, [id number] 00:00:00* Test Item Value Reference Range Interpretation Comme nts HPV HIGH RISK INTERP (test c ode = 86038) NEGATIVE HPV 16 (test code = 88433) NEGATIVE HPV 18 (test code = 22525) NEGATIVE HPV, HR, OTHER GENOTYPES (te st code = 03005) NEGATIVE PDFE (test code = PDFReport) PDF Gigi CamposPAP TEST, THINPREP, [id number] 00:00:00* Test Item Value Reference Range Interpretation Comme nts SOURCE: (test code = 8001) Cervical/Endocervical SLIDES: (test code = 8011) 1 LMP: (test code = 8021) 12/2022 SPECIMEN ADEQUACY: (test code = 69931) (NOTE) INTERPRETATION: (test code = 63834) NILM/NO EPITH. ABNORMALITY;SEE BELOW OTHER COMMENTS: (test code = 8081) (NOTE) ROLLER DIE CUTTING MACHINE OPERATOR: (test code = 8101) NAKIA Vick(ASCP)IA C LOCATION: (test code = 22167) (NOTE) CPT: (test code = 8140) (NOTE) Gigi Jennings AustinLIPID [id number] 05:17:16* Test Item Value Reference Range Interpretation Comme nts CHOLESTEROL (test code = 2210) 215 MG/DL <200 H TRIGLYCERIDES (test code = 2232) 103 MG/DL <150 HDL CHOLESTEROL (test code = 2220) 55 MG/DL >39 CALC LDL CHOL (test code = 2237) 138 MG/DL <100 H NOTE: CALCULATED LDL IS BASED ON ZEUS-KAYE METHOD WHICHINCLUDES ADJUSTABLE TRIGLYCERIDE:VLDL CHOLESTEROL RATIO.THIS FACTOR VARIES BY MEASURED TRIGLYCERIDE AND NON-HDLCHOLESTEROL CONCENTRATIONS WITH INCREASED CALCULATED LDL SEENIN HIGHER TRIGLYCERIDE OR LOWER NON-HDL SPECIMENS. FOR MOREINFORMATION, SEE CLIENT ANNOUNCEMENT AT [email or web address] /CalcLDL-C RISK RATIO LDL/HDL (test code = 2238) 2.51 RATIO <3.22 COMPREHENSIVE METABOLIC [id number] 05:17:16* Test Item Value Reference Range Interpretation Comme nts GLUCOSE (test code = 2217) 244 MG/DL 70-99 H BUN (test code = 2208) 8 MG/DL 6-20 CREATININE (test code = 2214) 0.73 MG/DL 0.60-1.30 eGFR (2020 CKD-EPI) (test code = 11879) 100 ML/MIN/1.73 >60 CALC BUN/CREAT (test code = 2235) 11 RATIO 6-28 SODIUM (test code = 2231) 139 MEQ/L 133-146 POTASSIUM (test code = 2228) 4.2 MEQ/L 3.5-5.4 CHLORIDE (test code = 2215) 100 MEQ/L 95-107 CARBON DIOXIDE (test code = 2206) 29 MEQ/L 19-31 CALCIUM (test code = 2209) 9.6 MG/DL 8.5-10.5 PROTEIN, TOTAL (test code = 2229) 7.3 G/DL 6.1-8.3 ALBUMIN (test code = 2201) 4.3 G/DL 3.5-5.2 CALC GLOBULIN (test code = 2240) 3.0 G/DL 1.9-3.7 CALC A/G RATIO (test code = 2234) 1.4 RATIO 1.0-2.6 BILIRUBIN, TOTAL (test code = 2207) 0.8 MG/DL <=1.2 ALKALINE PHOSPHATASE (test code = 220) 141 U/L 40-128 H AST (test code = 2218) 32 U/L 9-40 ALT (test code = 2219) 29 U/L 5-40 UNLESS OTHERWISE INDICATED, ALL TESTING PERFORMED AT [facility] [address] [place] [address] ENVIRONMENTAL STUDIES DEPARTMENT CHAIR: MEGHANN CURRY M.D. CLIA NUMBER [id number] [facility] [place] [place]. [id number] CBC W/AUTO DIFF WITH [id number] 04:55:57* Test Item Value Reference Range Interpretation Comme nts WBC (test code = 1001) 5.3 K/UL 3.5-11.0 RBC (test code = 1002) 4.62 M/UL 3.80-5.40 HEMOGLOBIN (test code = 1003) 13.0 G/DL 11.5-15.5 HEMATOCRIT (test code = 1004) 38.9 % 34.0-45.0 MCV (test code = 1005) 84.2 fL 80.0-99.0 MCH (test code = 1006) 28.1 PG 25.0-33.0 MCHC (test code = 1007) 33.4 G/DL 31.0-36.0 RDW (test code = 1038) 14.0 % 11.5-15.0 NEUTROPHILS (test code = 1008) 56.1 % LYMPHOCYTES (test code = 1010) 31.6 % MONOCYTES (test code = 1011) 6.5 % EOSINOPHILS (test code = 1012) 4.2 % BASOPHILS (test code = 1013) 0.8 % IMMATURE GRANULOCYTES (test code = 1036) 0.8 % NUCLEATED RBCS (test code = 1065) 0.0 /100 WBC'S See_Comment [Automated [address] [employer] [employer]] The system which generated this result transmitted reference range: 0.0. The reference range was not used to interpret this result as normal/abnormal. PLATELET COUNT (test code = 1015) 277 K/UL 130-400 ABSOLUTE NEUTROPHILS (test code = 1066) 2.95 K/UL 1.50-7.50 ABSOLUTE LYMPHOCYTES (test code = 1067) 1.66 K/UL 1.00-4.00 ABSOLUTE MONOCYTES (test code = 1068) 0.34 K/UL 0.20-1.00 ABSOLUTE EOSINOPHILS (test code = 1040) 0.22 K/UL 0.00-0.50 ABSOLUTE BASOPHILS (test code = 1069) 0.04 K/UL 0.00-0.20 ABS IMMATURE GRANULOCYTES (test code = 1020) 0.04 K/UL 0.00-0.10 ABS NUCLEATED RBCS (test code = 02626) 0.00 K/UL 0.00-0.11 HEMOGLOBIN [id number] 02:36:30* Test Item Value Reference Range Interpretation Comme nts HEMOGLOBIN A1c (test code = 90432) 10.6 % 4.2-5.6 H [employer] GUIDELINES FOR HGB A1C: PREDIABETES/INCREASED RISK . . . . . . . 5.7-6.4% DIAGNOSIS OF DIABETES . . . . . . . . . >=6.5% WITH CONFIRMATION OR APPROPRIATE SYMPTOMS NOTE: ASSAY MAY BE AFFECTED BY HEMOGLOBINOPATHIES (SICKLE CELL ANEMIA, S-C DISEASE, OTHERS) OR ARTIFICIALLY LOWERED BY DECREASED RED CELL SURVIVAL (HEMOLYTIC ANEMIAS, BLOOD LOSS, ETC.). CONSIDER ALTERNATE TESTING OR LABORATORY CONSULTATION. HEMOGLOBIN [id number] 00:00:00* Test Item Value Reference Range Interpretation Comme nts HEMOGLOBIN A1c (test code = 51494) 10.6 % Gigi Jennings AustinLIPID [id number] 00:00:00* Test Item Value Reference Range Interpretation Comme nts CHOLESTEROL (test code = 2210) 215 MG/DL TRIGLYCERIDES (test code = 2232) 103 MG/DL HDL CHOLESTEROL (test code = 2220) 55 MG/DL CALC LDL CHOL (test code = 2237) 138 MG/DL RISK RATIO LDL/HDL (test cod e = 2238) 2.51 RATIO Gigi CamposCOMPREHENSIVE METABOLIC [id number] 00:00:00* Test Item Value Reference Range Interpretation Comme nts GLUCOSE (test code = 2217) 244 MG/DL BUN (test code = 2208) 8 MG/DL CREATININE (test code = 2214) 0.73 MG/DL eGFR (2020 CKD-EPI) (test code = 56688) 100 ML/MIN/1.73 CALC BUN/CREAT (test code = 2235) 11 RATIO SODIUM (test code = 2231) 139 MEQ/L POTASSIUM (test code = 2228) 4.2 MEQ/L CHLORIDE (test code = 2215) 100 MEQ/L CARBON DIOXIDE (test code = 2206) 29 MEQ/L CALCIUM (test code = 2209) 9.6 MG/DL PROTEIN, TOTAL (test code = 2229) 7.3 G/DL ALBUMIN (test code = 2201) 4.3 G/DL CALC GLOBULIN (test code = 2240) 3.0 G/DL CALC A/G RATIO (test code = 2234) 1.4 RATIO BILIRUBIN, TOTAL (test code = 2207) 0.8 MG/DL ALKALINE PHOSPHATASE (test code = 2204) 141 U/L AST (test code = 2218) 32 U/L ALT (test code = 2219) 29 U/L Gigi Jennings [facility] W/AUTO [id number] 00:00:00* Test Item Value Reference Range Interpretation Comme nts WBC (test code = 1001) 5.3 K/UL RBC (test code = 1002) 4.62 M/UL HEMOGLOBIN (test code = 1003) 13.0 G/DL HEMATOCRIT (test code = 1004) 38.9 % MCV (test code = 1005) 84.2 fL MCH (test code = 1006) 28.1 PG MCHC (test code = 1007) 33.4 G/DL RDW (test code = 1038) 14.0 % NEUTROPHILS (test code = 1008) 56.1 % LYMPHOCYTES (test code = 1010) 31.6 % MONOCYTES (test code = 1011) 6.5 % EOSINOPHILS (test code = 1012) 4.2 % BASOPHILS (test code = 1013) 0.8 % IMMATURE GRANULOCYTES (test code = 1036) 0.8 % NUCLEATED RBCS (test code = 1065) 0.0 /100WBC'S PLATELET COUNT (test code = 1015) 277 K/UL ABSOLUTE NEUTROPHILS (test c ode = 1066) 2.95 K/UL ABSOLUTE LYMPHOCYTES (test c ode = 1067) 1.66 K/UL ABSOLUTE MONOCYTES (test cod e = 1068) 0.34 K/UL ABSOLUTE EOSINOPHILS (test c ode = 1040) 0.22 K/UL ABSOLUTE BASOPHILS (test cod e = 1069) 0.04 K/UL ABS IMMATURE GRANULOCYTES (t est code = 1020) 0.04 K/UL ABS NUCLEATED RBCS (test cod e = 15708) 0.00 K/UL Gigi CamposHEMOGLOBIN [id number] 00:00:00* Test Item Value Reference Range Interpretation Comme nts HEMOGLOBIN A1c (test code = 91427) 10.6 % Gigi CamposLIPID [id number] 00:00:00* Test Item Value Reference Range Interpretation Comme nts CHOLESTEROL (test code = 2210) 215 MG/DL TRIGLYCERIDES (test code = 2232) 103 MG/DL HDL CHOLESTEROL (test code = 2220) 55 MG/DL CALC LDL CHOL (test code = 2237) 138 MG/DL RISK RATIO LDL/HDL (test cod e = 2238) 2.51 RATIO Gigi CamposCOMPREHENSIVE METABOLIC [id number] 00:00:00* Test Item Value Reference Range Interpretation Comme nts GLUCOSE (test code = 2217) 244 MG/DL BUN (test code = 2208) 8 MG/DL CREATININE (test code = 2214) 0.73 MG/DL eGFR (2020 CKD-EPI) (test code = 25708) 100 ML/MIN/1.73 CALC BUN/CREAT (test code = 2235) 11 RATIO SODIUM (test code = 2231) 139 MEQ/L POTASSIUM (test code = 2228) 4.2 MEQ/L CHLORIDE (test code = 2215) 100 MEQ/L CARBON DIOXIDE (test code = 2206) 29 MEQ/L CALCIUM (test code = 2209) 9.6 MG/DL PROTEIN, TOTAL (test code = 2229) 7.3 G/DL ALBUMIN (test code = 2201) 4.3 G/DL CALC GLOBULIN (test code = 2240) 3.0 G/DL CALC A/G RATIO (test code = 2234) 1.4 RATIO BILIRUBIN, TOTAL (test code = 2207) 0.8 MG/DL ALKALINE PHOSPHATASE (test code = 2204) 141 U/L AST (test code = 2218) 32 U/L ALT (test code = 2219) 29 U/L Gigi CamposCBC W/AUTO [id number] 00:00:00* Test Item Value Reference Range Interpretation Comme nts WBC (test code = 1001) 5.3 K/UL RBC (test code = 1002) 4.62 M/UL HEMOGLOBIN (test code = 1003) 13.0 G/DL HEMATOCRIT (test code = 1004) 38.9 % MCV (test code = 1005) 84.2 fL MCH (test code = 1006) 28.1 PG MCHC (test code = 1007) 33.4 G/DL RDW (test code = 1038) 14.0 % NEUTROPHILS (test code = 1008) 56.1 % LYMPHOCYTES (test code = 1010) 31.6 % MONOCYTES (test code = 1011) 6.5 % EOSINOPHILS (test code = 1012) 4.2 % BASOPHILS (test code = 1013) 0.8 % IMMATURE GRANULOCYTES (test code = 1036) 0.8 % NUCLEATED RBCS (test code = 1065) 0.0 /100WBC'S PLATELET COUNT (test code = 1015) 277 K/UL ABSOLUTE NEUTROPHILS (test c ode = 1066) 2.95 K/UL ABSOLUTE LYMPHOCYTES (test c ode = 1067) 1.66 K/UL ABSOLUTE MONOCYTES (test cod e = 1068) 0.34 K/UL ABSOLUTE EOSINOPHILS (test c ode = 1040) 0.22 K/UL ABSOLUTE BASOPHILS (test cod e = 1069) 0.04 K/UL ABS IMMATURE GRANULOCYTES (t est code = 1020) 0.04 K/UL ABS NUCLEATED RBCS (test cod e = 27346) 0.00 K/UL Gigi CamposHEMOGLOBIN [id number] 00:00:00* Test Item Value Reference Range Interpretation Comme nts HEMOGLOBIN A1c (test code = 36103) 10.6 % Gigi CamposLIPID [id number] 00:00:00* Test Item Value Reference Range Interpretation Comme nts CHOLESTEROL (test code = 2210) 215 MG/DL TRIGLYCERIDES (test code = 2232) 103 MG/DL HDL CHOLESTEROL (test code = 2220) 55 MG/DL CALC LDL CHOL (test code = 2237) 138 MG/DL RISK RATIO LDL/HDL (test cod e = 2238) 2.51 RATIO Gigi CamposCOMPREHENSIVE METABOLIC [id number] 00:00:00* Test Item Value Reference Range Interpretation Comme nts GLUCOSE (test code = 2217) 244 MG/DL BUN (test code = 2208) 8 MG/DL CREATININE (test code = 2214) 0.73 MG/DL eGFR (2020 CKD-EPI) (test code = 17522) 100 ML/MIN/1.73 CALC BUN/CREAT (test code = 2235) 11 RATIO SODIUM (test code = 2231) 139 MEQ/L POTASSIUM (test code = 2228) 4.2 MEQ/L CHLORIDE (test code = 2215) 100 MEQ/L CARBON DIOXIDE (test code = 2206) 29 MEQ/L CALCIUM (test code = 2209) 9.6 MG/DL PROTEIN, TOTAL (test code = 2229) 7.3 G/DL ALBUMIN (test code = 2201) 4.3 G/DL CALC GLOBULIN (test code = 2240) 3.0 G/DL CALC A/G RATIO (test code = 2234) 1.4 RATIO BILIRUBIN, TOTAL (test code = 2207) 0.8 MG/DL ALKALINE PHOSPHATASE (test code = 2204) 141 U/L AST (test code = 2218) 32 U/L ALT (test code = 2219) 29 U/L Gigi CamposCBC W/AUTO [id number] 00:00:00* Test Item Value Reference Range Interpretation Comme nts WBC (test code = 1001) 5.3 K/UL RBC (test code = 1002) 4.62 M/UL HEMOGLOBIN (test code = 1003) 13.0 G/DL HEMATOCRIT (test code = 1004) 38.9 % MCV (test code = 1005) 84.2 fL MCH (test code = 1006) 28.1 PG MCHC (test code = 1007) 33.4 G/DL RDW (test code = 1038) 14.0 % NEUTROPHILS (test code = 1008) 56.1 % LYMPHOCYTES (test code = 1010) 31.6 % MONOCYTES (test code = 1011) 6.5 % EOSINOPHILS (test code = 1012) 4.2 % BASOPHILS (test code = 1013) 0.8 % IMMATURE GRANULOCYTES (test code = 1036) 0.8 % NUCLEATED RBCS (test code = 1065) 0.0 /100WBC'S PLATELET COUNT (test code = 1015) 277 K/UL ABSOLUTE NEUTROPHILS (test c ode = 1066) 2.95 K/UL ABSOLUTE LYMPHOCYTES (test c ode = 1067) 1.66 K/UL ABSOLUTE MONOCYTES (test cod e = 1068) 0.34 K/UL ABSOLUTE EOSINOPHILS (test c ode = 1040) 0.22 K/UL ABSOLUTE BASOPHILS (test cod e = 1069) 0.04 K/UL ABS IMMATURE GRANULOCYTES (t est code = 1020) 0.04 K/UL ABS NUCLEATED RBCS (test cod e = 50416) 0.00 K/UL Gigi CamposHEMOGLOBIN [id number] 00:00:00* Test Item Value Reference Range Interpretation Comme nts HEMOGLOBIN A1c (test code = 40586) 10.6 % Gigi CamposLIPID [id number] 00:00:00* Test Item Value Reference Range Interpretation Comme nts CHOLESTEROL (test code = 2210) 215 MG/DL TRIGLYCERIDES (test code = 2232) 103 MG/DL HDL CHOLESTEROL (test code = 2220) 55 MG/DL CALC LDL CHOL (test code = 2237) 138 MG/DL RISK RATIO LDL/HDL (test cod e = 2238) 2.51 RATIO Gigi CamposCOMPREHENSIVE METABOLIC [id number] 00:00:00* Test Item Value Reference Range Interpretation Comme nts GLUCOSE (test code = 2217) 244 MG/DL BUN (test code = 2208) 8 MG/DL CREATININE (test code = 2214) 0.73 MG/DL eGFR (2020 CKD-EPI) (test code = 82216) 100 ML/MIN/1.73 CALC BUN/CREAT (test code = 2235) 11 RATIO SODIUM (test code = 2231) 139 MEQ/L POTASSIUM (test code = 2228) 4.2 MEQ/L CHLORIDE (test code = 2215) 100 MEQ/L CARBON DIOXIDE (test code = 2206) 29 MEQ/L CALCIUM (test code = 2209) 9.6 MG/DL PROTEIN, TOTAL (test code = 2229) 7.3 G/DL ALBUMIN (test code = 2201) 4.3 G/DL CALC GLOBULIN (test code = 2240) 3.0 G/DL CALC A/G RATIO (test code = 2234) 1.4 RATIO BILIRUBIN, TOTAL (test code = 2207) 0.8 MG/DL ALKALINE PHOSPHATASE (test code = 2204) 141 U/L AST (test code = 2218) 32 U/L ALT (test code = 2219) 29 U/L Gigi CamposCBC W/AUTO [id number] 00:00:00* Test Item Value Reference Range Interpretation Comme nts WBC (test code = 1001) 5.3 K/UL RBC (test code = 1002) 4.62 M/UL HEMOGLOBIN (test code = 1003) 13.0 G/DL HEMATOCRIT (test code = 1004) 38.9 % MCV (test code = 1005) 84.2 fL MCH (test code = 1006) 28.1 PG MCHC (test code = 1007) 33.4 G/DL RDW (test code = 1038) 14.0 % NEUTROPHILS (test code = 1008) 56.1 % LYMPHOCYTES (test code = 1010) 31.6 % MONOCYTES (test code = 1011) 6.5 % EOSINOPHILS (test code = 1012) 4.2 % BASOPHILS (test code = 1013) 0.8 % IMMATURE GRANULOCYTES (test code = 1036) 0.8 % NUCLEATED RBCS (test code = 1065) 0.0 /100WBC'S PLATELET COUNT (test code = 1015) 277 K/UL ABSOLUTE NEUTROPHILS (test c ode = 1066) 2.95 K/UL ABSOLUTE LYMPHOCYTES (test c ode = 1067) 1.66 K/UL ABSOLUTE MONOCYTES (test cod e = 1068) 0.34 K/UL ABSOLUTE EOSINOPHILS (test c ode = 1040) 0.22 K/UL ABSOLUTE BASOPHILS (test cod e = 1069) 0.04 K/UL ABS IMMATURE GRANULOCYTES (t est code = 1020) 0.04 K/UL ABS NUCLEATED RBCS (test cod e = 48806) 0.00 K/UL Gigi CamposHEMOGLOBIN [id number] 00:00:00* Test Item Value Reference Range Interpretation Comme nts HEMOGLOBIN A1c (test code = 54107) 10.6 % Gigi CamposLIPID [id number] 00:00:00* Test Item Value Reference Range Interpretation Comme nts CHOLESTEROL (test code = 2210) 215 MG/DL TRIGLYCERIDES (test code = 2232) 103 MG/DL HDL CHOLESTEROL (test code = 2220) 55 MG/DL CALC LDL CHOL (test code = 2237) 138 MG/DL RISK RATIO LDL/HDL (test cod e = 2238) 2.51 RATIO Gigi CamposCOMPREHENSIVE METABOLIC [id number] 00:00:00* Test Item Value Reference Range Interpretation Comme nts GLUCOSE (test code = 2217) 244 MG/DL BUN (test code = 2208) 8 MG/DL CREATININE (test code = 2214) 0.73 MG/DL eGFR (2020 CKD-EPI) (test code = 27737) 100 ML/MIN/1.73 CALC BUN/CREAT (test code = 2235) 11 RATIO SODIUM (test code = 2231) 139 MEQ/L POTASSIUM (test code = 2228) 4.2 MEQ/L CHLORIDE (test code = 2215) 100 MEQ/L CARBON DIOXIDE (test code = 2206) 29 MEQ/L CALCIUM (test code = 2209) 9.6 MG/DL PROTEIN, TOTAL (test code = 2229) 7.3 G/DL ALBUMIN (test code = 2201) 4.3 G/DL CALC GLOBULIN (test code = 2240) 3.0 G/DL CALC A/G RATIO (test code = 2234) 1.4 RATIO BILIRUBIN, TOTAL (test code = 2207) 0.8 MG/DL ALKALINE PHOSPHATASE (test code = 2204) 141 U/L AST (test code = 2218) 32 U/L ALT (test code = 2219) 29 U/L Gigi CamposCBC W/AUTO [id number] 00:00:00* Test Item Value Reference Range Interpretation Comme nts WBC (test code = 1001) 5.3 K/UL RBC (test code = 1002) 4.62 M/UL HEMOGLOBIN (test code = 1003) 13.0 G/DL HEMATOCRIT (test code = 1004) 38.9 % MCV (test code = 1005) 84.2 fL MCH (test code = 1006) 28.1 PG MCHC (test code = 1007) 33.4 G/DL RDW (test code = 1038) 14.0 % NEUTROPHILS (test code = 1008) 56.1 % LYMPHOCYTES (test code = 1010) 31.6 % MONOCYTES (test code = 1011) 6.5 % EOSINOPHILS (test code = 1012) 4.2 % BASOPHILS (test code = 1013) 0.8 % IMMATURE GRANULOCYTES (test code = 1036) 0.8 % NUCLEATED RBCS (test code = 1065) 0.0 /100WBC'S PLATELET COUNT (test code = 1015) 277 K/UL ABSOLUTE NEUTROPHILS (test c ode = 1066) 2.95 K/UL ABSOLUTE LYMPHOCYTES (test c ode = 1067) 1.66 K/UL ABSOLUTE MONOCYTES (test cod e = 1068) 0.34 K/UL ABSOLUTE EOSINOPHILS (test c ode = 1040) 0.22 K/UL ABSOLUTE BASOPHILS (test cod e = 1069) 0.04 K/UL ABS IMMATURE GRANULOCYTES (t est code = 1020) 0.04 K/UL ABS NUCLEATED RBCS (test cod e = 96562) 0.00 K/UL Gigi CamposCOMPREHENSIVE METABOLIC [id number] 00:00:00* Test Item Value Reference Range Interpretation Comme nts GLUCOSE (test code = 2217) 165 MG/DL BUN (test code = 2208) 8 MG/DL CREATININE (test code = 2214) 0.82 MG/DL eGFR AMER. (test cod e = 86677) 100 ML/MIN/1.73 eGFR NON- AMER. (test code = 77544) 86 ML/MIN/1.73 CALC BUN/CREAT (test code = 2235) 10 RATIO SODIUM (test code = 2231) 140 MEQ/L POTASSIUM (test code = 2228) 4.2 MEQ/L CHLORIDE (test code = 2215) 103 MEQ/L CARBON DIOXIDE (test code = 2206) 27 MEQ/L CALCIUM (test code = 2209) 9.7 MG/DL PROTEIN, TOTAL (test code = 2229) 7.3 G/DL ALBUMIN (test code = 2201) 4.5 G/DL CALC GLOBULIN (test code = 2240) 2.8 G/DL CALC A/G RATIO (test code = 2234) 1.6 RATIO BILIRUBIN, TOTAL (test code = 2207) 0.7 MG/DL ALKALINE PHOSPHATASE (test code = 2204) 71 U/L AST (test code = 2218) 20 U/L ALT (test code = 2219) 14 U/L Gigi CamposLIPID [id number] 00:00:00* Test Item Value Reference Range Interpretation Comme nts CHOLESTEROL (test code = 2210) 162 MG/DL TRIGLYCERIDES (test code = 2232) 63 MG/DL HDL CHOLESTEROL (test code = 2220) 49 MG/DL CALC LDL CHOL (test code = 2237) 100 MG/DL RISK RATIO LDL/HDL (test cod e = 2238) 2.05 RATIO Gigi CamposHEMOGLOBIN [id number] 00:00:00* Test Item Value Reference Range Interpretation Comme lyndsay HEMOGLOBIN A1c (test code = 08348) 6.0 % Gigi CamposCOMPREHENSIVE METABOLIC [id number] 00:00:00* Test Item Value Reference Range Interpretation Comme nts GLUCOSE (test code = 2217) 165 MG/DL BUN (test code = 2208) 8 MG/DL CREATININE (test code = 2214) 0.82 MG/DL eGFR AMER. (test cod e = 85495) 100 ML/MIN/1.73 eGFR NON- AMER. (test code = 92196) 86 ML/MIN/1.73 CALC BUN/CREAT (test code = 2235) 10 RATIO SODIUM (test code = 2231) 140 MEQ/L POTASSIUM (test code = 2228) 4.2 MEQ/L CHLORIDE (test code = 2215) 103 MEQ/L CARBON DIOXIDE (test code = 2206) 27 MEQ/L CALCIUM (test code = 2209) 9.7 MG/DL PROTEIN, TOTAL (test code = 2229) 7.3 G/DL ALBUMIN (test code = 2201) 4.5 G/DL CALC GLOBULIN (test code = 2240) 2.8 G/DL CALC A/G RATIO (test code = 2234) 1.6 RATIO BILIRUBIN, TOTAL (test code = 2207) 0.7 MG/DL ALKALINE PHOSPHATASE (test code = 2204) 71 U/L AST (test code = 2218) 20 U/L ALT (test code = 2219) 14 U/L Gigi CamposLIPID [id number] 00:00:00* Test Item Value Reference Range Interpretation Comme nts CHOLESTEROL (test code = 2210) 162 MG/DL TRIGLYCERIDES (test code = 2232) 63 MG/DL HDL CHOLESTEROL (test code = 2220) 49 MG/DL CALC LDL CHOL (test code = 2237) 100 MG/DL RISK RATIO LDL/HDL (test cod e = 2238) 2.05 RATIO Gigi CamposHEMOGLOBIN [id number] 00:00:00* Test Item Value Reference Range Interpretation Comme nts HEMOGLOBIN A1c (test code = 39283) 6.0 % Gigi CamposCOMPREHENSIVE METABOLIC [id number] 00:00:00* Test Item Value Reference Range Interpretation Comme nts GLUCOSE (test code = 2217) 165 MG/DL BUN (test code = 2208) 8 MG/DL CREATININE (test code = 2214) 0.82 MG/DL eGFR AMER. (test cod e = 16734) 100 ML/MIN/1.73 eGFR NON- AMER. (test code = 47225) 86 ML/MIN/1.73 CALC BUN/CREAT (test code = 2235) 10 RATIO SODIUM (test code = 2231) 140 MEQ/L POTASSIUM (test code = 2228) 4.2 MEQ/L CHLORIDE (test code = 2215) 103 MEQ/L CARBON DIOXIDE (test code = 2206) 27 MEQ/L CALCIUM (test code = 2209) 9.7 MG/DL PROTEIN, TOTAL (test code = 2229) 7.3 G/DL ALBUMIN (test code = 2201) 4.5 G/DL CALC GLOBULIN (test code = 2240) 2.8 G/DL CALC A/G RATIO (test code = 2234) 1.6 RATIO BILIRUBIN, TOTAL (test code = 2207) 0.7 MG/DL ALKALINE PHOSPHATASE (test code = 2204) 71 U/L AST (test code = 2218) 20 U/L ALT (test code = 2219) 14 U/L Gigi CamposLIPID [id number] 00:00:00* Test Item Value Reference Range Interpretation Comme nts CHOLESTEROL (test code = 2210) 162 MG/DL TRIGLYCERIDES (test code = 2232) 63 MG/DL HDL CHOLESTEROL (test code = 2220) 49 MG/DL CALC LDL CHOL (test code = 2237) 100 MG/DL RISK RATIO LDL/HDL (test cod e = 2238) 2.05 RATIO Gigi Jennings AustinHEMOGLOBIN [id number] 00:00:00* Test Item Value Reference Range Interpretation Comme nts HEMOGLOBIN A1c (test code = 05830) 6.0 % Gigi CamposCOMPREHENSIVE METABOLIC [id number] 00:00:00* Test Item Value Reference Range Interpretation Comme nts GLUCOSE (test code = 2217) 165 MG/DL BUN (test code = 2208) 8 MG/DL CREATININE (test code = 2214) 0.82 MG/DL eGFR AMER. (test cod e = 46241) 100 ML/MIN/1.73 eGFR NON- AMER. (test code = 05138) 86 ML/MIN/1.73 CALC BUN/CREAT (test code = 2235) 10 RATIO SODIUM (test code = 2231) 140 MEQ/L POTASSIUM (test code = 2228) 4.2 MEQ/L CHLORIDE (test code = 2215) 103 MEQ/L CARBON DIOXIDE (test code = 2206) 27 MEQ/L CALCIUM (test code = 2209) 9.7 MG/DL PROTEIN, TOTAL (test code = 2229) 7.3 G/DL ALBUMIN (test code = 2201) 4.5 G/DL CALC GLOBULIN (test code = 2240) 2.8 G/DL CALC A/G RATIO (test code = 2234) 1.6 RATIO BILIRUBIN, TOTAL (test code = 2207) 0.7 MG/DL ALKALINE PHOSPHATASE (test code = 2204) 71 U/L AST (test code = 2218) 20 U/L ALT (test code = 2219) 14 U/L Gigi Jennings AustinLIPID [id number] 00:00:00* Test Item Value Reference Range Interpretation Comme nts CHOLESTEROL (test code = 2210) 162 MG/DL TRIGLYCERIDES (test code = 2232) 63 MG/DL HDL CHOLESTEROL (test code = 2220) 49 MG/DL CALC LDL CHOL (test code = 2237) 100 MG/DL RISK RATIO LDL/HDL (test cod e = 2238) 2.05 RATIO Gigi CamposHEMOGLOBIN [id number] 00:00:00* Test Item Value Reference Range Interpretation Comme nts HEMOGLOBIN A1c (test code = 37744) 6.0 % Gigi F AustinCOMPREHENSIVE METABOLIC [id number] 00:00:00* Test Item Value Reference Range Interpretation Comme nts GLUCOSE (test code = 2217) 165 MG/DL BUN (test code = 2208) 8 MG/DL CREATININE (test code = 2214) 0.82 MG/DL eGFR AMER. (test cod e = 11928) 100 ML/MIN/1.73 eGFR NON- AMER. (test code = 70710) 86 ML/MIN/1.73 CALC BUN/CREAT (test code = 2235) 10 RATIO SODIUM (test code = 2231) 140 MEQ/L POTASSIUM (test code = 2228) 4.2 MEQ/L CHLORIDE (test code = 2215) 103 MEQ/L CARBON DIOXIDE (test code = 2206) 27 MEQ/L CALCIUM (test code = 2209) 9.7 MG/DL PROTEIN, TOTAL (test code = 2229) 7.3 G/DL ALBUMIN (test code = 2201) 4.5 G/DL CALC GLOBULIN (test code = 2240) 2.8 G/DL CALC A/G RATIO (test code = 2234) 1.6 RATIO BILIRUBIN, TOTAL (test code = 2207) 0.7 MG/DL ALKALINE PHOSPHATASE (test code = 2204) 71 U/L AST (test code = 2218) 20 U/L ALT (test code = 2219) 14 U/L Gigi CamposLIPID [id number] 00:00:00* Test Item Value Reference Range Interpretation Comme nts CHOLESTEROL (test code = 2210) 162 MG/DL TRIGLYCERIDES (test code = 2232) 63 MG/DL HDL CHOLESTEROL (test code = 2220) 49 MG/DL CALC LDL CHOL (test code = 2237) 100 MG/DL RISK RATIO LDL/HDL (test cod e = 2238) 2.05 RATIO Gigi CamposHEMOGLOBIN [id number] 00:00:00* Test Item Value Reference Range Interpretation Comme lyndsay HEMOGLOBIN A1c (test code = 85980) 6.0 % Gigi Campos
--- NOTE | 2024-05-24 22:44 | RAD REPORT ---
EXAM: XR Knee Right 3 View HISTORY: BR MAIN PAIN Bed: COMPARISON: None TECHNIQUE: 3 views of the right knee were obtained. FINDINGS: Moderate knee effusion is seen. There is no evidence of acute fracture or dislocation. Mil d tricompartmental degenerative changes are seen. These up at the quadriceps tendon attachment. No soft tissue swelling or other soft tissue abnormality is present. IMPRESSION: No evidence of acute osseous abnormality. Moderate joint effusion mild tricompartmental osteoarthritic changes.
[2024-05-24] MEDS ORDERED: KETOROLAC 30 MG/ML INJ ONE (22:54)
--- NOTE | 2024-05-24 22:57 | ER ---
Nurse's Notes [facility] Name: Lizette Ruby Age: 53 yrs Sex: Female : 1970 Arrival Date: 05/24/2024 Time: 21:46 Bed 7 Private MD: Diagnosis: Pain in right knee Presentation: 05/24 21:55 Chief complaint: Patient states: RIGHT KNEE FOR A MONTH, HAS SEEN PCP.TOLD SHE HAS br2 OSTEOARTHRITIS, DENIES INJURY. Coronavirus screen: Client denies travel out of the [place] in the last 14 days. Ebola Screen: Patient denies exposure to infectious person. Initial Sepsis Screen: Does the patient meet any 2 criteria? No. Patient's initial sepsis screen is negative. Does the patient have a suspected source of infection? No. Patient's initial sepsis screen is negative. Risk Assessment: Do you want to hurt yourself or someone else? Patient reports no desire to harm self or others. Onset of symptoms was April 23, 2024. 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 - Infectious Disease History:: Denies. - Social history:: Smoking status: Patient denies any tobacco usage or history of. Screenin:19 [facility] ED Fall Risk Assessment (Adult) History of falling in the last 3 months, al5 including since admission No falls in past 3 months (0 pts) Confusion or Disorientation No (0 pts) Intoxicated or Sedated No (0 pts) Impaired Gait No (0 pts) Mobility Assist Device Used No (0 pt) Altered Elimination No (0 pt) Score/Fall Risk Level 0 - 2 = Low Risk Oriented to surroundings, Maintained a safe environment, Hourly rounding (assess needs \T\ fall precautionary measures) done. Abuse screen: Denies threats or abuse. Denies injuries from another. Nutritional screening: No deficits noted. Tuberculosis screening: No symptoms or risk factors identified. Assessment: 22:05 General: Appears in no apparent distress. Behavior is calm, cooperative. Pain: al5 Complains of pain in right knee. Neuro: Level of Consciousness is awake, alert, obeys commands, Oriented to person, place, time, situation. Cardiovascular: Capillary refill < 3 seconds Patient's skin is warm and dry. Respiratory: Airway is patent Respiratory effort is even, unlabored, Respiratory pattern is regular, symmetrical. GI: No signs and/or symptoms were reported involving the gastrointestinal system. : No signs and/or symptoms were reported regarding the genitourinary system. EENT: No signs and/or symptoms were reported regarding the EENT system. Derm: Skin is intact, is healthy with good turgor, Skin is pink, warm \T\ dry. normal. Musculoskeletal: Reports pain in right knee. Vital Signs: 21:55 BP 144 / 59; Pulse 64; Resp 18; Temp 97.2; Pulse Ox 100% ; Weight 122.92 kg; Height 5 br2 ft. 9 in. ; Pain 5/10; 22:58 BP 133 / 92; Pulse 57; Resp 18; Pulse Ox 99% on R/A; al5 21:55 Body Mass Index 40.02 (122.92 kg, 175.26 cm) br2 21:55 Pain Scale: Adult br2 ED Course: 21:48 Patient arrived in ED. mr 21:48 [facility]C [facility] kb 21:49 Freddie Coburn MD is Attending Physician. kb 21:56 Triage completed. br2 22:00 Arm band placed on right wrist. Patient placed in the treatment room, on a stretcher. al5 22:18 Mee Singh, RN is Primary Nurse. al5 22:20 Patient has correct armband on for positive identification. Bed in low position. Call al5 light in reach. Side rails up X 1. Provided Education on: plan of care. 22:20 No provider procedures requiring assistance completed. al5 22:33 Knee Right 3 View XRAY In Process Unspecified. EDMS 22:59 Patient did not have IV access during this emergency room visit. al5 Administered Medications: 22:58 Drug: Ketorolac IM 30 mg IM once Route: IM; Site: right deltoid; al5 22:58 Follow up: Response: No adverse reaction; Medication administered at discharge. al5 Medication: 22:19 VIS not applicable for this client. al5 Outcome: 22:57 Discharge ordered by MD. kb 23:07 Discharged to home ambulatory, al5 23:07 Condition: good 23:07 Discharge instructions given to patient, Instructed on discharge instructions, follow up and referral plans. medication usage, Demonstrated understanding of instructions, follow-up care, medications, Prescriptions given X 1, 23:08 Patient left the ED. al5 Signatures: Dispatcher [employer] EDMS Samanta Valle, VICE PRESIDENT OF OPERATIONS-C VICE PRESIDENT OF OPERATIONS-Nunu Melissa, Reg Reg mr Mee Singh, RN RN al5 Theodora Bolden RN RN br2
--- NOTE | 2024-05-24 22:57 | EDPHYS ---
Physician Documentation [facility] Name: Lizette Ruby Age: 53 yrs Sex: Female : 1970 Arrival Date: 05/24/2024 Time: 21:46 Bed 7 Private MD: ED Physician Freddie Coburn HPI: 05/24 21:51 This 53 yrs old Black Female presents to ER via Unassigned with complaints of Knee kb Pain, Right. 21:51 Pt is a 53 year old female who presents for right knee pain that has been ongoing for 3 kb weeks. Was seen by [facility] on 05/03 for this pain, given naproxen but it isn't improving. Denies injury or trauma. States she woke up with this pain. 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 - Infectious Disease History:: Denies. - Social history:: Smoking status: Patient denies any tobacco usage or history of. ROS: 21:51 Constitutional: As per HPI kb Exam: 22:42 Constitutional: This is a well developed, well nourished patient who is awake, alert, kb and in no acute distress. Head/Face: Normocephalic, atraumatic. ENT: Moist Mucous membranes Cardiovascular: Regular rate Respiratory: Respirations even and unlabored. No increased work of breathing. Talking in full sentences Skin: Warm, dry with normal turgor. Normal color. Neuro: Awake and alert, GCS 15, oriented to person, place, time, and situation. 22:42 Musculoskeletal/extremity: Extremities: grossly normal except: noted in the lateral aspect of right knee and medial aspect of right knee: pain, tenderness, ROM: limited active range of motion due to pain, Circulation is intact in all extremities. Sensation intact. Weight bearing: able to fully bear weight, Vital Signs: 21:55 BP 144 / 59; Pulse 64; Resp 18; Temp 97.2; Pulse Ox 100% ; Weight 122.92 kg; Height 5 br2 ft. 9 in. ; Pain 5/10; 22:58 BP 133 / 92; Pulse 57; Resp 18; Pulse Ox 99% on R/A; al5 21:55 Body Mass Index 40.02 (122.92 kg, 175.26 cm) br2 21:55 Pain Scale: Adult br2 MDM: 21:49 Medical Screening Exam initiated kb 22:45 Differential diagnosis: fracture, sprain, arthritis. Data reviewed: vital signs, nurses kb notes. Counseling: I had a detailed discussion with the patient and/or guardian regarding the historical points, exam findings, and any diagnostic results supporting the discharge/admit diagnosis, radiology results, the need for outpatient follow up, a orthopedic surgeon, to return to the emergency department if symptoms worsen or persist or if there are any questions or concerns that arise at home. 05/24 21:52 Order name: Knee Right 3 View XRAY; Complete Time: 22:44 kb Administered Medications: 22:58 Drug: Ketorolac IM 30 mg IM once Route: IM; Site: right deltoid; al5 22:58 Follow up: Response: No adverse reaction; Medication administered at discharge. al5 Disposition Summary: 05/24/24 22:57 Discharge Ordered Notes: Location: Home kb Condition: Stable kb Diagnosis - Pain in right knee kb Followup: kb - With: Emergency Department - When: As needed - Reason: Worsening of condition Followup: kb - With: Private Physician - When: 2 - 3 days - Reason: Recheck today's complaints, Continuance of care, Re-evaluation by your physician Discharge Instructions: - Discharge Summary Sheet kb - Acute Knee Pain, Adult, [id number] kb Forms: - Medication Reconciliation Form kb - Antibiotic Education kb - Prescription Opioid Use kb - Patient Portal Instructions kb - Leadership Thank You Letter Prescriptions: - Diclofenac Sodium 75 mg Oral tablet, delayed release (enteric coated) - take 1 tablet ORAL route 2 times per day As needed; 30 tablet; Refills: 0, kb Product Selection Permitted Addendum: 05/25/2024 23:49 I was immediately available for consultation during this patient's visit. I did not e c2 personally see the patient or discuss the patient with the PRABHA. . Signatures: Dispatcher [employer] Samanta Horowitz FNP-C FNP-Ckb Corral, Edwin, MD MD ec2 Mee Singh RN RN al5 Theodora Bolden RN RN br2
[2024-05-27 15:42] VITALS: BP 133/92; TEMP 97.2; O2SAT 99
== END 2024-05-24 23:08 | disposition home or self-care (01) ==
LOC: ER 21:46
DX: M25.561 Pain in right knee (principal); I10 Essential (primary) hypertension; E11.9 Type 2 diabetes mellitus without complications; E78.00 Pure hypercholesterolemia, unspecified
CPT/HCPCS: 96372; 99284